=== PATIENT | male | born 1985 | race Caucasian/White ===

== ENCOUNTER 2022-10-16 13:18 | Emergency (ER) | payer SELFPAY ==
[~2022-10-16] VITALS: Ht 187 cm; Wt 95.2 kg
[2022-10-16] MEDS ORDERED: LACTATED RINGERS 1,000 ML 1,000 ML IV STA (13:34)
[2022-10-16 13:40] LABS: BASOPHILS # (AUTO) 0.1 10^3/uL (0.0-0.1); BASOPHILS % (AUTO) 1 % (0-10); EOSINOPHILS # (AUTO) 0.2 10^3/uL (0.0-0.3); EOSINOPHILS % (AUTO) 2 % (0-10); HEMATOCRIT 41 % (40-54); HEMOGLOBIN 14.7 g/dL (13.3-17.7); LYMPHOCYTES # (AUTO) 2.1 10^3/uL (1.0-4.0); LYMPHOCYTES % (AUTO) 25 % (12-44); MEAN CORPUSCULAR HEMOGLOBIN 32 pg (25-34); MEAN CORPUSCULAR HGB CONC 36 g/dL (32-36); MEAN CORPUSCULAR VOLUME 91 fL (80-99); MEAN PLATELET VOLUME 9.3 fL (9.0-12.2); MONOCYTES # (AUTO) 0.8 10^3/uL (0.0-1.0); MONOCYTES % (AUTO) 9 % (0-12); NEUTROPHILS # (AUTO) 5.3 10^3/uL (1.8-7.8); NEUTROPHILS % (AUTO) 63 % (42-75); PLATELET COUNT 317 10^3/uL (130-400); WHITE BLOOD COUNT 8.5 10^3/uL (4.3-11.0)
[2022-10-16 13:55] LABS: ALBUMIN 4.3 GM/DL (3.2-4.5); POTASSIUM 3.2 MMOL/L (3.6-5.0)
[2022-10-16 13:57] LABS: CALCIUM 9.3 MG/DL (8.5-10.1)
[2022-10-16 13:58] LABS: TOTAL PROTEIN 7.1 GM/DL (6.4-8.2)
[2022-10-16 14:00] LABS: BILIRUBIN,TOTAL 0.7 MG/DL (0.1-1.0)
[2022-10-16 14:01] LABS: CREATININE SERUM 1.1 MG/DL (0.60-1.30)
--- NOTE | 2022-10-16 14:04 | ED General ---
General Chief Complaint: Exposure Stated Complaint: VOMITING | HEADACHE Nursing Triage Note: ARRIVED VIA AMB TO ROOM 10. PT THINKS HE BECAME OVERHEATED WORKING OUTSIDE. COMPLAINS OF HEADACHE, ABD PAIN, AND NAUSEA. Source of Information: Patient Exam Limitations: No Limitations History of Present Illness Date Seen by Provider: Oct 16, 2022 Time Seen by Provider: 13:30 Initial Comments Report of nausea, abdominal cramping and headache. He was working out side in the heat today and the temperatures near 100 degrees. 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 States he started feeling worse but could not get relief nor take a break. Ultimately presented here for the symptoms. Denies diarrhea or dysuria. Skin is very warm to touch but has normal temperature currently. Denies injury, breathing problems, chest pain or other concerns. Timing/Duration: 1-3 Hours Severity: Moderate Associated Systoms: No Chest Pain, No Cough, No Fever/Chills; Headaches, Nausea/Vomiting; No Shortness of Air; Weakness Allergies and Home Medications Allergies Coded Allergies: No Known Drug Allergies (Unverified , 10/16/22) Patient Home Medication List Home Medication List Reviewed: Yes Review of Systems Review of Systems Constitutional: see HPI; No chills, No fever EENTM: no symptoms reported Respiratory: No cough, No short of breath Cardiovascular: No chest pain, No edema; palpitations Gastrointestinal: abdominal pain, nausea Genitourinary: no symptoms reported Musculoskeletal: muscle cramps Skin: no symptoms reported Past Wuotsya-Nlmcmx-Zqieww Hx Patient Social History Tobacco Use?: Yes Tobacco type used: Cigarettes Smoking Status: Current Everyday Smoker Substance use?: No Additional substance use comme: PAST HX ET CLEAN FOR 50 DAYS. Past Medical History Surgeries: No Respiratory: No Cardiac: No Family Medical History Reviewed Nursing Family Hx Physical Exam Vital Signs Vital Signs - First Documented 10/16/22 13:33 Temp 37.0 Pulse 98 Resp 16 B/P (MAP) 135/85 (102) Pulse Ox 98 O2 Delivery Room Air Capillary Refill : Less Than 3 Seconds Height, Weight, BMI Height: '" Weight: lbs. oz. kg; 27.00 BMI Method: General Appearance: No Apparent Distress, WD/WN HEENT: PERRL/EOMI, Pharynx Normal Neck: Non Tender, Supple Respiratory: Lungs Clear, Normal Breath Sounds Cardiovascular: No Murmur, Tachycardia Gastrointestinal: Non Tender, Soft Extremity: Normal Range of Motion, Non Tender, No Calf Tenderness Neurologic/Psychiatric: Alert, Oriented x3 Progress/Results/Core Measures Suspected Sepsis SIRS Temperature: Pulse: 98 Respiratory Rate: 16 Laboratory Tests 10/16/22 13:28: White Blood Count 8.5 Blood Pressure 135 /85 Mean: 102 Laboratory Tests 10/16/22 13:28: Creatinine 1.10, Platelet Count 317, Total Bilirubin 0.7 Results/Orders Lab Results Laboratory Tests Test 10/16/22 13:28 Range/Units White Blood Count 8.5 4.3-11.0 10^3/uL Red Blood Count 4.56 4.30-5.52 10^6/uL Hemoglobin 14.7 13.3-17.7 g/dL Hematocrit 41 40-54 % Mean Corpuscular Volume 91 80-99 fL Mean Corpuscular Hemoglobin 32 25-34 pg Mean Corpuscular Hemoglobin Concent 36 32-36 g/dL Red Cell Distribution Width 12.2 10.0-14.5 % Platelet Count 317 130-400 10^3/uL Mean Platelet Volume 9.3 9.0-12.2 fL Immature Granulocyte % (Auto) 1 % Neutrophils (%) (Auto) 63 42-75 % Lymphocytes (%) (Auto) 25 12-44 % Monocytes (%) (Auto) 9 0-12 % Eosinophils (%) (Auto) 2 0-10 % Basophils (%) (Auto) 1 0-10 % Neutrophils # (Auto) 5.3 1.8-7.8 10^3/uL Lymphocytes # (Auto) 2.1 1.0-4.0 10^3/uL Monocytes # (Auto) 0.8 0.0-1.0 10^3/uL Eosinophils # (Auto) 0.2 0.0-0.3 10^3/uL Basophils # (Auto) 0.1 0.0-0.1 10^3/uL Immature Granulocyte # (Auto) 0.0 0.0-0.1 10^3/uL Sodium Level 137 135-145 MMOL/L Potassium Level 3.2 L 3.6-5.0 MMOL/L Chloride Level 105 98-107 MMOL/L Carbon Dioxide Level 21 21-32 MMOL/L Anion Gap 11 5-14 MMOL/L Blood Urea Nitrogen 13 7-18 MG/DL Creatinine 1.10 0.60-1.30 MG/DL Estimat Glomerular Filtration Rate 90 BUN/Creatinine Ratio 12 Glucose Level 123 H 70-105 MG/DL Calcium Level 9.3 8.5-10.1 MG/DL Corrected Calcium 9.1 8.5-10.1 MG/DL Total Bilirubin 0.7 0.1-1.0 MG/DL Aspartate Amino Transf (AST/SGOT) 26 5-34 U/L Alanine Aminotransferase (ALT/SGPT) 33 0-55 U/L Alkaline Phosphatase 54 40-136 U/L Total Creatine Kinase 160 30-200 U/L Total Protein 7.1 6.4-8.2 GM/DL Albumin 4.3 3.2-4.5 GM/DL My Orders Orders - SONNY THOMAS MD Cbc With Automated Diff (10/16/22 13:34) Comprehensive Metabolic Panel (10/16/22 13:34) Creatine Kinase (10/16/22 13:34) Lactated Ringers (Lr 1000 Ml Iv Solution (10/16/22 13:34) Ed Iv/Invasive Line Start (10/16/22 13:34) Vital Signs/I&O 10/16/22 13:33 Temp 37.0 Pulse 98 Resp 16 B/P (MAP) 135/85 (102) Pulse Ox 98 O2 Delivery Room Air Capillary Refill : Less Than 3 Seconds Blood Pressure Mean: 102 Progress Note : Progress Note Seen and evaluated. IV, labs including CBC, CMP, total CK ordered. LR 1 L bolus ordered. Monitor patient. Differential diagnosis includes heat exhaustion, electrolyte abnormality, dehydration 430: CBC complete and grossly normal. CMP grossly normal except for slightly low potassium. CK is in normal range. Patient is overall feeling much better and would like to leave. We did discuss hydration. Discharged home with return precautions. Patient verbalized understanding of instructions and agreement with plan. Departure Impression Primary Impression: Heat exhaustion Qualified Codes: T67.5XXA - Heat exhaustion, unspecified, initial encounter Additional Impressions: Dehydration Hypokalemia Disposition: 01 HOME, SELF-CARE Condition: Improved Departure-Patient Inst. Decision time for Depature: 14:36 Referrals: NO,LOCAL PHYSICIAN (PCP/Family) Primary Care Physician Patient Instructions: Heat Exhaustion and Heat Stroke (DC), Hypokalemia (DC), Dehydration, Adult (DC) Add. Discharge Instructions: All discharge instructions reviewed with patient and/or family. Voiced understanding. Plenty of fluids including electrolyte-containing compounds such as Gatorade, Powerade or similar. Try to eat a normal diet. Avoid significant prolonged exposure to heat. Return for worse pain, fever, vomiting, weakness, breathing problems or other concerns as needed. SONNY THOMAS MD Oct 16, 2022 14:04
[2022-10-16 14:39] VITALS: BP 119/70
== END 2022-10-16 14:39 | disposition home or self-care (01) ==
LOC: ER 13:21
DX: T67.5XXA Heat exhaustion, unspecified, initial encounter (principal); E86.0 Dehydration; E87.6 Hypokalemia; F17.210 Nicotine dependence, cigarettes, uncomplicated
CPT/HCPCS: 36415; 80053; 82550; 85025

== ENCOUNTER 2022-11-27 19:17 | Observation (INO) | payer OTHER ==
[~2022-11-27] VITALS: Ht 187.9 cm; Wt 91.4 kg
--- NOTE | 2022-11-27 19:43 | ED General ---
General Chief Complaint: Dental Problems/Pain Stated Complaint: TOOTHPAIN, JAW SWELLING, SOME BLOOD Nursing Triage Note: PATIENT STATES THAT HE BEGAN TO EXPERIENCE SWELLING AND PAIN IN HIS LEFT LOWER JAW YESTERDAY AND WENT TO BED "HOPING TO WAKE UP AND IT BE GONE". IT HAS CONTINUED TO GET WORSE THROUGHOUT THE DAY. Source of Information: Patient Exam Limitations: No Limitations History of Present Illness Date Seen by Provider: Nov 27, 2022 Time Seen by Provider: 19:35 Initial Comments This 37-year-old young man presents to the emergency room with complaints of e xtreme pain and swelling about the left jaw. Symptoms were first noted yesterday and worsening throughout the day today. He is now febrile with a temperature of 100.8. He has not taken any medications for pain. He has poor dentition which is likely triggered infection. There is no overt abscess immediately evident on exam. Patient denies any other major medical problems. Allergies and Home Medications Allergies Coded Allergies: No Known Drug Allergies (Unverified , 10/16/22) Patient Home Medication List Home Medication List Reviewed: Yes Review of Systems Review of Systems Constitutional: see HPI EENTM: see HPI Respiratory: no symptoms reported Cardiovascular: no symptoms reported Gastrointestinal: no symptoms reported Genitourinary: no symptoms reported Musculoskeletal: no symptoms reported Skin: no symptoms reported Psychiatric/Neurological: No Symptoms Reported Hematologic/Lymphatic: No Symptoms Reported Immunological/Allergic: no symptoms reported Past Bjplyhe-Nuugiu-Rkbfpx Hx Patient Social History Tobacco Use?: Yes Tobacco type used: Cigarettes Use of E-Cig and/or Vaping dev: No Substance use?: No Alcohol Use?: No Past Medical History Surgeries: No Respiratory: No Cardiac: No Neurological: No Genitourinary: No Gastrointestinal: No Musculoskeletal: No Endocrine: No HEENT: No Cancer: No Psychosocial: No Integumentary: No Physical Exam-Suspected Sepsis Physical Exam Vital Signs Vital Signs - First Documented 11/27/22 19:30 Temp 38.3 Pulse 98 Resp 20 B/P (MAP) 141/78 (99) Pulse Ox 99 O2 Delivery Room Air Capillary Refill : Less Than 3 Seconds Blood Pressure Mean: 99 Height, Weight, BMI Height: '" Weight: lbs. oz. kg; 27.00 BMI Method: General Appearance: WD/WN, Mild Distress HEENT: PERRL/EOMI, Pharynx Normal, Other (Marked edema and induration about the left jaw and extending down into the neck. No overt abscess is appreciated. There is warmth and erythema associated with the swelling. Poor dentition is noted.) Neck: Other (Swelling, tenderness, and erythema from the left jaws extending into the left neck) Respiratory: Lungs Clear, Normal Breath Sounds, No Accessory Muscle Use Cardiovascular: No Edema, No Murmur, Tachycardia Extremity: Normal Inspection Neurologic/Psychiatric: Alert, Oriented x3, No Motor/Sensory Deficits, Normal Mood/Affect Skin: normal color, warm/dry, other (Facial skin changes as above) Focused Exam Lactate Level 11/27/22 20:21: Lactic Acid Level 1.43 Lactic Acid Level Progress/Results/Core Measures Suspected Sepsis SIRS Temperature: Pulse: 98 Respiratory Rate: 20 Laboratory Tests 11/27/22 20:03: White Blood Count 13.3H Blood Pressure 141 /78 Mean: 99 11/27/22 20:21: Lactic Acid Level 1.43 Laboratory Tests 11/27/22 20:03: Creatinine 1.02, Platelet Count 304, Total Bilirubin 1.5H Results/Orders Lab Results Laboratory Tests Test 11/27/22 20:03 11/27/22 20:21 Range/Units White Blood Count 13.3 H 4.3-11.0 10^3/uL Red Blood Count 4.46 4.30-5.52 10^6/uL Hemoglobin 14.1 13.3-17.7 g/dL Hematocrit 41 40-54 % Mean Corpuscular Volume 92 80-99 fL Mean Corpuscular Hemoglobin 32 25-34 pg Mean Corpuscular Hemoglobin Concent 34 32-36 g/dL Red Cell Distribution Width 12.0 10.0-14.5 % Platelet Count 304 130-400 10^3/uL Mean Platelet Volume 9.6 9.0-12.2 fL Immature Granulocyte % (Auto) 0 % Neutrophils (%) (Auto) 80 H 42-75 % Lymphocytes (%) (Auto) 11 L 12-44 % Monocytes (%) (Auto) 8 0-12 % Eosinophils (%) (Auto) 1 0-10 % Basophils (%) (Auto) 0 0-10 % Neutrophils # (Auto) 10.6 H 1.8-7.8 10^3/uL Lymphocytes # (Auto) 1.4 1.0-4.0 10^3/uL Monocytes # (Auto) 1.1 H 0.0-1.0 10^3/uL Eosinophils # (Auto) 0.1 0.0-0.3 10^3/uL Basophils # (Auto) 0.1 0.0-0.1 10^3/uL Immature Granulocyte # (Auto) 0.1 0.0-0.1 10^3/uL Sodium Level 135 135-145 MMOL/L Potassium Level 3.3 L 3.6-5.0 MMOL/L Chloride Level 102 98-107 MMOL/L Carbon Dioxide Level 20 L 21-32 MMOL/L Anion Gap 13 5-14 MMOL/L Blood Urea Nitrogen 12 7-18 MG/DL Creatinine 1.02 0.60-1.30 MG/DL Estimat Glomerular Filtration Rate 98 BUN/Creatinine Ratio 12 Glucose Level 137 H 70-105 MG/DL Calcium Level 8.7 8.5-10.1 MG/DL Corrected Calcium 8.5 8.5-10.1 MG/DL Total Bilirubin 1.5 H 0.1-1.0 MG/DL Aspartate Amino Transf (AST/SGOT) 15 5-34 U/L Alanine Aminotransferase (ALT/SGPT) 17 0-55 U/L Alkaline Phosphatase 64 40-136 U/L Total Protein 7.3 6.4-8.2 GM/DL Albumin 4.2 3.2-4.5 GM/DL Lactic Acid Level 1.43 0.50-2.00 MMOL/L My Orders Orders - PRATIBHA POWER MD Cbc And Automated Diff (11/27/22 19:37) Comprehensive Metabolic Panel (11/27/22 19:37) Blood Culture (11/27/22 19:37) Ed Iv/Invasive Line Start (11/27/22 19:37) Vital Signs Adult Sepsis Patie Q15M (11/27/22 19:37) Remove Rings In Anticipation O (11/27/22 19:37) Lactic Acid Analyzer (11/27/22 19:37) Piperacillin/Tazobactam (Piperacillin/Ta (11/27/22 19:45) Fentanyl Injection (Fentanyl Injection (11/27/22 19:45) Lactated Ringers 1,000 Ml (Lactated Ring (11/27/22 19:45) Ct Neck (Soft Tissue) W (11/27/22 19:37) Iohexol Injection (Omnipaque 350 Mg/Ml 1 (11/27/22 19:45) Received Contrast (Hold Metformin- Contr (11/27/22 19:45) Ns (Ivpb) 100 Ml (Sodium Chloride 0.9% 1 (11/27/22 19:45) Ketorolac Injection (Ketorolac Injection (11/27/22 22:15) Ed Admission (Communication) (11/27/22 22:12) Lactated Ringers 1,000 Ml (Lactated Ring (11/27/22 22:50) Medications Given in ED Current Medications Medications Dose Ordered Sig/Tigre Route Start Time Stop Time Status Last Admin Dose Admin Fentanyl Citrate 75 mcg ONCE ONCE IVP 11/27/22 19:45 11/27/22 19:46 DC 11/27/22 20:10 75 MCG Iohexol 75 ml ONCE ONCE IV 11/27/22 19:45 11/27/22 19:51 DC 11/27/22 20:51 75 ML Ketorolac Tromethamine 30 mg ONCE ONCE IVP 11/27/22 22:15 11/27/22 22:16 DC 11/27/22 22:14 30 MG Lactated Ringer's 1,000 ml @ 0 mls/hr Q0M ONCE IV 11/27/22 19:45 11/27/22 19:46 DC 11/27/22 20:10 999 MLS/HR Piperacillin Sod/ Tazobactam Sod 4.5 gm/Sodium Chloride 100 ml @ 200 mls/hr ONCE ONCE IV 11/27/22 19:45 11/27/22 20:14 DC 11/27/22 20:10 200 MLS/HR Sodium Chloride 100 ml ONCE ONCE IV 11/27/22 19:45 11/27/22 19:51 DC 11/27/22 20:51 100 ML Vital Signs/I&O 11/27/22 11/27/22 11/27/22 11/27/22 19:30 21:00 22:30 22:55 Temp 38.3 37.5 37.4 Pulse 98 90 88 Resp 20 20 18 B/P (MAP) 141/78 (99) 138/77 136/64 Pulse Ox 99 98 99 O2 Delivery Room Air Room Air Room Air Room Air 11/27/22 11/28/22 23:03 03:34 Temp 37.0 37.1 Pulse 85 70 Resp 16 16 B/P (MAP) 138/60 (86) 110/61 (77) Pulse Ox 98 98 O2 Delivery Room Air Room Air 11/28/22 00:00 Intake Total 1100 ml Balance 1100 ml Capillary Refill : Less Than 3 Seconds Blood Pressure Mean: 99 Progress Note : Progress Note Patient was interviewed and examined at 1935 during triage. He was found to be febrile and tachycardic. Sepsis was suspected due to fever, tachycardia, and source of infection. Labs were obtained, reviewed, and interpreted by me. CBC demonstrated leukocytosis of 13.3. CBC was otherwise unremarkable. CMP demonstrated mild hypokalemia with potassium of 3.3. Glucose was mildly elevated at 137. Lactic acid was normal. Patient was treated with Zosyn for initial antibiotic therapy after blood cultures were obtained. Pain was treated with Toradol and fentanyl. A liter of LR was infused. CT soft tissues neck with contrast was obtained. I viewed these images and noted significant edema within the soft tissues around the left jaw and left upper neck. No overt drainable abscess was identified. No compromise to the airway was noted. Radiologist report was also reviewed as noted below. Patient was ultimately admitted for treatment of sepsis related to facial cellulitis. Case was di scussed with Dr. Minor, admitting hospitalist on duty, who excepted admission. Diagnostic Imaging Diagonstic Imaging: CT Plain Films/CT/US/NM/MRI: other (Neck) Comments NAME: GIBSON LEE [facility] REC#: [id number] PT STATUS: REG ER : 1985 PHYSICIAN: PRATIBHA POWER MD ADMIT DATE: 11/27/22/ER Signed Date of Exam:11/27/22 CT NECK (SOFT TISSUE) W PROCEDURE: CT neck soft tissue with contrast. TECHNIQUE: Multiple contiguous axial images were obtained through the neck after the administration of contrast. Auto Exposure Controls were utilized during the CT exam to meet ALARA standards for radiation dose reduction. INDICATION: Jaw abscess, sepsis. COMPARISON: None available. FINDINGS: There is marked asymmetric subcutaneous swelling and reticulations throughout the left surya-aspect of the face at the level of the mandible. There is no rim-enhancing fluid collection to indicate underlying abscess. However, there is periapical lucencies involving the left mandibular 2nd premolar. There is also dental caries involving this tooth. No abscess along the buccal or lingual surface of the mandible. Airway remains patent. There are mildly enlarged left-sided level 1 and level 2 cervical lymph nodes which are very likely reactive in nature due to the inflammation/cellulitis within the left aspect of the face. Epiglottis is not enlarged. Thyroid is normal. Lung apices are clear. No worrisome focal osseous lesion. IMPRESSION: 1. Dental caries and periodontal disease involving the left mandibular 2nd premolar likely accounts for the cellulitis involving the left surya-face. 2. No drainable abscess. Dictated by: Dictated on workstation # [id number] Dict: 11/27/222114 Trans: 11/27/222148 [facility] [id number] Interpreted by: CHRISTIN VAIL MD Electronically signed by: CHRISTIN VAIL MD 11/27/222148 Departure Communication (Admissions) Time/Spoke to Admitting Phy: 22:09 Dr. Minor Impression Primary Impression: Sepsis Qualified Codes: A41.9 - Sepsis, unspecified organism Additional Impression: Facial cellulitis Disposition: ADMITTED INPATIENT Condition: Stable Admissions Decision to Admit Reason: Admit from ER (General) Decision to Admit/Date: Nov 27, 2022 Time/Decision to Admit Time: 22:09 Departure-Patient Inst. Referrals: NO,LOCAL PHYSICIAN (PCP/Family) Primary Care Physician PRATIBHA POWER MD Nov 27, 2022 19:43
[2022-11-27] MEDS ORDERED: IOHEXOL 350 MG/ML 100 ML (OMNIPAQUE 350) VIAL IV ONE (19:45)
[2022-11-27] MEDS ORDERED: NS 100 ML (IVPB) BAG IV ONE (19:45)
[2022-11-27] MEDS ORDERED: LACTATED RINGERS 1,000 ML 1,000 ML IV ONE ×2 (19:45→22:50)
[2022-11-27] MEDS ORDERED: fentaNYL INJECTION 100 MCG/2 ML VIAL IVP ONE (19:45)
[2022-11-27] MEDS ORDERED: HOLD METFORMIN - RECEIVED CONTRAST 20 ML VIAL IV SCH (19:45)
[2022-11-27] MEDS ORDERED: PIPERACILLIN/Tazobactam 4.5 GM in NS (IVPB) 100 ML 100 ML IV ONE (19:45)
[2022-11-27 20:15] LABS: BASOPHILS # (AUTO) 0.1 10^3/uL (0.0-0.1); BASOPHILS % (AUTO) 0 % (0-10); EOSINOPHILS # (AUTO) 0.1 10^3/uL (0.0-0.3); EOSINOPHILS % (AUTO) 1 % (0-10); HEMATOCRIT 41 % (40-54); HEMOGLOBIN 14.1 g/dL (13.3-17.7); LYMPHOCYTES # (AUTO) 1.4 10^3/uL (1.0-4.0); LYMPHOCYTES % (AUTO) 11 % (12-44); MEAN CORPUSCULAR HEMOGLOBIN 32 pg (25-34); MEAN CORPUSCULAR HGB CONC 34 g/dL (32-36); MEAN CORPUSCULAR VOLUME 92 fL (80-99); MEAN PLATELET VOLUME 9.6 fL (9.0-12.2); MONOCYTES # (AUTO) 1.1 10^3/uL (0.0-1.0); MONOCYTES % (AUTO) 8 % (0-12); NEUTROPHILS # (AUTO) 10.6 10^3/uL (1.8-7.8); NEUTROPHILS % (AUTO) 80 % (42-75); PLATELET COUNT 304 10^3/uL (130-400); WHITE BLOOD COUNT 13.3 10^3/uL (4.3-11.0)
[2022-11-27 20:53] LABS: ALBUMIN 4.2 GM/DL (3.2-4.5); BILIRUBIN,TOTAL 1.5 MG/DL (0.1-1.0); CALCIUM 8.7 MG/DL (8.5-10.1); CREATININE SERUM 1.02 MG/DL (0.60-1.30); POTASSIUM 3.3 MMOL/L (3.6-5.0); TOTAL PROTEIN 7.3 GM/DL (6.4-8.2)
--- NOTE | 2022-11-27 21:33 | Diagnostic Imaging Report ---
PROCEDURE: CT neck soft tissue with contrast. TECHNIQUE: Multiple contiguous axial images were obtained through the neck after the administration of contrast. Auto Exposure Controls were utilized during the CT exam to meet ALARA standards for radiation dose reduction. INDICATION: Jaw abscess, sepsis. COMPARISON: None available. FINDINGS: There is marked asymmetric subcutaneous swelling and reticulations throughout the left surya-aspect of the face at the level of the mandible. There is no rim-enhancing fluid collection to indicate underlying abscess. However, there is periapical lucencies involving the left mandibular 2nd premolar. There is also dental caries involving this tooth. No abscess along the buccal or lingual surface of the mandible. Airway remains patent. There are mildly enlarged left-sided level 1 and level 2 cervical lymph nodes which are very likely reactive in nature due to the inflammation/cellulitis within the left aspect of the face. Epiglottis is not enlarged. Thyroid is normal. Lung apices are clear. No worrisome focal osseous lesion. IMPRESSION: 1. Dental caries and periodontal disease involving the left mandibular 2nd premolar likely accounts for the cellulitis involving the left surya-face. 2. No drainable abscess. Dictated by: Dictated on workstation # [id number]
[2022-11-27] MEDS ORDERED: KETOROLAC INJ 30 MG/ML VIAL IVP ONE (22:15)
[2022-11-27 23:03] VITALS: BP 138/60
[2022-11-27] MEDS ORDERED: KETOROLAC INJ 30 MG/ML VIAL IVP PRN (23:30)
[2022-11-27] MEDS ORDERED: ONDANSETRON INJECTION 4 MG/2 ML (SDV) IV PRN (23:30)
[2022-11-27] MEDS: LACTATED RINGERS 1,000 ML 1,000 ML IV SCH (23:32)
[2022-11-27] MEDS: PIPERACILLIN/Tazobactam 4.5 GM in NS (IVPB) 100 ML 100 ML IV SCH (23:50)
[2022-11-28 03:34] VITALS: BP 110/61
[2022-11-28] MEDS: LACTATED RINGERS 1,000 ML 1,000 ML IV SCH ×2 (05:40→12:37)
[2022-11-28] MEDS: HYDROcodone/ACETAMINOPHEN 5 MG/325 MG TABLET PO PRN ×2 (05:42→12:37)
[2022-11-28 06:28] LABS: BASOPHILS # (AUTO) 0.1 10^3/uL (0.0-0.1); BASOPHILS % (AUTO) 0 % (0-10); EOSINOPHILS # (AUTO) 0.3 10^3/uL (0.0-0.3); EOSINOPHILS % (AUTO) 2 % (0-10); HEMATOCRIT 37 % (40-54); HEMOGLOBIN 12.9 g/dL (13.3-17.7); LYMPHOCYTES # (AUTO) 1.1 10^3/uL (1.0-4.0); LYMPHOCYTES % (AUTO) 8 % (12-44); MEAN CORPUSCULAR HEMOGLOBIN 32 pg (25-34); MEAN CORPUSCULAR HGB CONC 35 g/dL (32-36); MEAN CORPUSCULAR VOLUME 91 fL (80-99); MEAN PLATELET VOLUME 9.5 fL (9.0-12.2); MONOCYTES # (AUTO) 1.3 10^3/uL (0.0-1.0); MONOCYTES % (AUTO) 10 % (0-12); NEUTROPHILS % (AUTO) 79 % (42-75); PLATELET COUNT 273 10^3/uL (130-400); WHITE BLOOD COUNT 12.7 10^3/uL (4.3-11.0)
[2022-11-28 06:42] LABS: CALCIUM 7.9 MG/DL (8.5-10.1); CREATININE SERUM 0.84 MG/DL (0.60-1.30); POTASSIUM 2.9 MMOL/L (3.6-5.0)
[2022-11-28 07:16] VITALS: BP 115/66
[2022-11-28] MEDS: PIPERACILLIN/Tazobactam 4.5 GM in NS (IVPB) 100 ML 100 ML IV SCH (08:36)
--- NOTE | 2022-11-28 09:01 | History & Physical-Hospitalist ---
DARRELL DUQUE 11/28/22 0901: History of Present Illness HPI/Chief Complaint Pt is a 37M who says a week ago, he broke his tooth eating a [employer] burger. His tooth hurt him until two days ago, where his left cheek became so swollen and painful that he couldn't open his mouth. Then yesterday he came to the ED because of it. Pt says he was not able to eat for most of 2 days due to the swelling and pain, except for a little bit last night and this morning, but he has been able to continue drinking throughout. Pt's left lower cheek and bottom lip are swollen with an erythematous rash that extends down into his left neck area. Pt also has an extremely swollen area in his left upper wisdom tooth / second molar area. The CT from yesterday says there was no drainable abscess. Pt says he has had tooth issues before but it has never lead to swelling or a rash like this. Pt says he did not take any medication for it. Pt denies N/V and denies any PMH or similar rashes. Source: patient Date Seen 11/28/22 Attending Physician No,Local Physician PCP Admitting Physician: Darrell Minor MD Attending Physician: Darrell Minor MD Referring Physician Date of Admission Nov 27, 2022 at 22:42 Home Medications & Allergies Home Medications Reviewed patient Home Medication Reconciliation performed by pharmacy medication reconciliations dispensary technician and/or nursing. Patients Allergies have been reviewed. Allergies Allergies Coded Allergies No Known Drug Allergies (Unverified10/16/22) Past Zhvftkc-Kiafrf-Qqhxvz Hx Patient Social History Marrital Status: Number of Children: 3 Number of living children: 3 Employed/Student: employed Tobacco Use?: Yes Tobacco type used: Cigarettes Smoking Status: Current Everyday Smoker Approx how many per day: 20 Smokeless Tobacco Frequency: Never a User Use of E-Cig and/or Vaping dev: No E-Cig or Vaping type used: Nicotine Use of E-Cig and/or Vaping Saturnino: Current Everyday User Substance use?: No Alcohol Use?: No Pt feels they are or have been: No Immunizations Up To Date First/Initial COVID19 Vaccinat: NONE Current Status Advance Directives: No Communicates: Verbally Primary Language: Nepali Preferred Spoken Language: Nepali Is interpretation needed?: No Implanted or Applied Medical D: None Past Medical History Gastroesophageal Reflux, Hemorrhoids PTSD (from holding mom's arm while she was shooting up meth, afraid of needles) Family Medical History No Pertinent Family Hx (asked about heart disease, diabetes, cancer, stroke, HTN, "any issues") Review of Systems Constitutional: No chills, No fever EENTM: No blurred vision, No double vision Respiratory: No cough, No short of breath Cardiovascular: No chest pain, No palpitations Gastrointestinal: No abdominal pain, No constipation, No diarrhea, No heartburn Genitourinary: No dysuria, No frequency, No hematuria Musculoskeletal: No back pain, No joint pain Skin: rash (left cheek extending to neck), other (swollen bottom lip) Psychiatric/Neurological: Denies Anxiety, Denies Depressed, Denies Headache Physical Exam Physical Exam Vital Signs Vital Signs - First Documented 11/27/22 19:30 Temp 38.3 Pulse 98 Resp 20 B/P (MAP) 141/78 (99) Pulse Ox 99 O2 Delivery Room Air Capillary Refill : Less Than 3 Seconds Height, Weight, BMI Height: '" Weight: lbs. oz. kg; 25.88 BMI Method: General Appearance: No Apparent Distress Eyes: Bilateral Eye Normal Inspection, Bilateral Eye PERRL HEENT: PERRL/EOMI, Pharynx Normal; No Scleral Icterus (L), No Scleral Icterus (R); Other (very swollen area in his left upper wisdom or second molar) Neck: Non Tender; No JVD Respiratory: Lungs Clear, Normal Breath Sounds, No Accessory Muscle Use, No Respiratory Distress Cardiovascular: Regular Rate, Rhythm, No Murmur Gastrointestinal: No Pulsatile Mass, Non Tender, Soft Neurologic/Psychiatric: Alert, Oriented x3 Skin: Erythema (lower left cheek extending to neck), Rash (lower left cheek extending to neck) Lymphatic: Other (tenderness submental, not submandibular or cervical) Results Results/Procedures Labs Laboratory Tests 11/27/22 20:03 11/28/22 06:18 Patient resulted labs reviewed. 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 He has poor dentition and broke a tooh eating a burger last week. His symptoms hav gotten worse since that time with swelling and pain of her left jaw and face prompting him to seek evaluation. He was found to meet sepsis criteria. CT revealed no abscess but cellulitis and reactive lymphadenopathy. He was admitted for IV abx. This morning he reports feeling much better. I recomended another night admission for continued IV abx but he declined as he has to be at work at 3pm today. I spoke with lab and his blood cultures are negative so far. I confirmed his phone number should his culture reveal something else. Social work assisted with making sure he could get antibiotics as he was unable to afford the copay. I recommended follow up with [facility] as he does not have a local dentist since moving her. Supervisory-Addendum Brief Verification & Attestation Participated in pt care: history, MDM, physical Personally performed: exam, history, MDM, supervision of care Care discussed with: Medical Student Procedures: n/a Results interpretation: Verified all documentation Verification and Attestation of Medical Student E/M Service A medical student performed and documented this service in my presence. I reviewed and verified all information documented by the medical student and made modifications to such information, when appropriate. I personally performed the physical exam and medical decision making. Julia Ramirez, Nov 28, 2022,19:40 DARRELL DUQUE Nov 28, 2022 09:01 JULIA RAMIREZ MD Nov 28, 2022 19:41
[2022-11-28 11:26] VITALS: BP 111/63
[2022-11-28] MEDS ORDERED: AMOX1TAB12 PO (13:15)
[2022-11-28] MEDS ORDERED: ACET325C7 PO (13:16)
--- NOTE | 2022-11-28 13:16 | Discharge Inst-Simple/Standard ---
Discharge Inst-Standard Patient Instructions/Follow Up Plan of Care/Instructions/FU: Please continue to take your medications as written. Please follow up with your primary care doctor to follow up this hospital stay. Activity as Tolerated: Yes Discharge Diet: No Restrictions Return to The Hospital For: Chest pain, shortness of breath, fever, weakness, if you feel you are getting worse. JULIA BANEGAS MD Nov 28, 2022 13:16
[2022-11-28 14:47] VITALS: BP 111/63
== END 2022-11-28 13:37 | disposition home or self-care (01) ==
LOC: EDUNIT# 19:17 → ER 19:22 → UNDOADMOB 22:42 → 4TH 22:42 → UNDODISOB 11-28 13:37
PROVIDERS: ADMIT Internal Medicine; ATTEND Internal Medicine
DX: A41.9 Sepsis, unspecified organism (principal); L03.211 Cellulitis of face; K05.6 Periodontal disease, unspecified; E87.6 Hypokalemia; K05.5 Other periodontal diseases; F17.210 Nicotine dependence, cigarettes, uncomplicated
CPT/HCPCS: 70491; 80048; 80053; 83605; 83735; 85025 ×2; 87040; 96376 ×2; 99284; G0378; 36415